=== PATIENT | female | born 1985 | race Caucasian/White ===

== ENCOUNTER 2022-04-03 19:10 | Emergency (ER) | payer SELFPAY ==
[2022-04-03] MEDS ORDERED: Sodium Chloride 0.9% 10 ML Syringe FLUSH PRN (19:18)
[2022-04-03] MEDS ORDERED: LORazepam 2 MG/ML SDV IVPUSH ONE (21:47)
== END 2022-04-04 06:21 | disposition home or self-care (01) ==
LOC: JD.ED 19:10
DX: T42.6X1A Poisoning by other antiepileptic and sedative-hypnotic drugs, accidental (unintentional), initial encounter (principal); Z88.0 Allergy status to penicillin; Z88.1 Allergy status to other antibiotic agents
CPT/HCPCS: 36415; 80053; 80143; 80179; 80307; 83735; 84443; 84703; 85025; 93005; 96374; 99284; J2060; J3490

== ENCOUNTER 2023-01-18 12:19 | Emergency (ER) | payer SELFPAY ==
[2023-01-18] MEDS ORDERED: Ondansetron 4 MG/2 ML SDV IVPUSH ONE (12:54)
[2023-01-18] MEDS ORDERED: Lactated Ringers 1,000 ML IV ONE (12:54)
[2023-01-18 13:34] LABS: APPEARANCE,URINE CLEAR (Clear); BILIRUBIN,URINE NEGATIVE (Negative); COLOR,URINE YELLOW (Yellow); GLUCOSE,URINE NEGATIVE (Negative); KETONES,URINE NEGATIVE (Negative); LEUKOCYTE ESTERASE,URINE NEGATIVE (Negative); NITRITE,URINE NEGATIVE (Negative); OCCULT BLOOD,URINE NEGATIVE (Negative); PROTEIN,URINE NEGATIVE (Negative); UROBILINOGEN,URINE 0.2 (0.2-1.0)
[2023-01-18 14:03] LABS: BASOPHILS PERCENT AUTO 0.5 % (0.0-1.0); EOSINOPHILS ABSOLUTE AUTO 0.1 K/mm3 (0.0-0.4); EOSINOPHILS PERCENT AUTO 1.7 % (0.0-6.0); HEMATOCRIT 40.1 % (37.0-47.0); HEMOGLOBIN 13.3 gm/dl (12.0-16.0); IMMATURE GRAN ABSOLUTE AUTO 0.03 K/mm3 (0.00-0.05); IMMATURE GRAN PERCENT AUTO 0.5 % (0.0-0.4); LYMPHOCYTES ABSOLUTE AUTO 1.8 K/mm3 (1.0-4.8); LYMPHOCYTES PERCENT AUTO 28.9 % (24.0-44.0); MEAN CORPUSCULAR HEMOGLOBIN 30.9 pg (28.0-32.0); MEAN CORPUSCULAR HGB CONC 33.2 g/dl (32.0-36.0); MEAN CORPUSCULAR VOLUME 93.3 fl (83.0-99.0); MEAN PLATELET VOLUME 9.5 fl (9.4-12.3); MONOCYTES ABSOLUTE AUTO 0.5 K/mm3 (0.0-0.8); MONOCYTES PERCENT AUTO 7.1 % (0.0-8.0); NEUTROPHILS ABSOLUTE AUTO 3.9 K/mm3 (1.8-7.7); NEUTROPHILS PERCENT AUTO 61.3 % (41.0-71.0); PLATELET COUNT,PLT 204 K/mm3 (150-400)
[2023-01-18 14:04] LABS: CORONAVIRUS COVID-19 NAA NEGATIVE (NEGATIVE); INFLUENZA A NAA NEGATIVE (NEGATIVE)
[2023-01-18] MEDS ORDERED: Ondansetron 4 MG Tab.DIS PO ONE (14:14)
[2023-01-18 14:31] LABS: ALBUMIN 3.2 g/dl (3.4-5.0); ANION GAP 10.9 (5-15); BILIRUBIN TOTAL 0.4 mg/dL (0.2-1.0); BUN/CREATININE RATIO 11.3 (14-18); CALCIUM 8.7 mg/dL (8.5-10.1); CREATININE 0.8 mg/dL (0.55-1.02); EST CRCL DRUG DOSING (CG) 84.95 mL/min; POTASSIUM,K 3.9 mEq/L (3.5-5.1); PROTEIN TOTAL,TP 6.4 g/dl (6.4-8.2)
== END 2023-01-18 16:10 | disposition home or self-care (01) ==
LOC: JD.ED 12:19
DX: K52.9 Noninfective gastroenteritis and colitis, unspecified (principal); Z20.822 Contact with and (suspected) exposure to COVID-19; Z86.16 Personal history of COVID-19; Z88.0 Allergy status to penicillin; Z88.1 Allergy status to other antibiotic agents
CPT/HCPCS: 0240U; 36415; 80053; 81003; 83690; 85025; 99284; A9270

== ENCOUNTER 2023-02-13 19:39 | Emergency (ER) | payer SELFPAY | END 2023-02-13 20:45 | disposition left against medical advice (07) | LOC: JD.ED 19:39 | DX: S61.210A Laceration without foreign body of right index finger without damage to nail, initial encounter (principal); S50.812A Abrasion of left forearm, initial encounter; Z88.0 Allergy status to penicillin; Z88.8 Allergy status to other drugs, medicaments and biological substances; Z86.16 Personal history of COVID-19; W26.8XXA Contact with other sharp object(s), not elsewhere classified, initial encounter; Y92.009 Unspecified place in unspecified non-institutional (private) residence as the place of occurrence of the external cause | CPT/HCPCS: 12001; 99283 ==